=== PATIENT | male | born 1970 | race Caucasian/White ===

== ENCOUNTER 2022-04-30 12:24 | Emergency (ER) | payer SELFPAY ==
[~2022-04-30] VITALS: Ht 177.8 cm; Wt 91.0 kg
[2022-04-30 12:52] VITALS: BP 121/92
[2022-04-30] MEDS ORDERED: KETOROLAC 60MG/2ML VIAL IM ONE (14:15)
[2022-04-30] MEDS ORDERED: NAPR-681 MT (15:52)
== END 2022-04-30 16:05 | disposition home or self-care (01) ==
LOC: ER 12:24
DX: M25.511 Pain in right shoulder (principal); M79.641 Pain in right hand; Z87.828 Personal history of other (healed) physical injury and trauma
CPT/HCPCS: 73030; 73130; 96372; 99284; J1885

== ENCOUNTER 2025-02-10 16:33 | Emergency (ER) | payer SELFPAY ==
[~2025-02-10] VITALS: Ht 170.2 cm; Wt 80.0 kg
[~2025-02-10 16:33] MED LIST: NAPR-681 MT
[2025-02-10 16:37] VITALS: O2SAT 100
[2025-02-10] MEDS: SODIUM CHLORIDE 0.9% 500 ML IV ONE (17:23)
[2025-02-10] MEDS: ONDANSETRON HCL 4MG/2ML INJ IV ONE (17:23)
[2025-02-10] MEDS: MORPHINE SULFATE 4 MG/ML INJ (FOR IV/IM USE) IV ONE (17:25)
[2025-02-10] MEDS ORDERED: TOPUD MT (19:30)
[2025-02-10] MEDS ORDERED: IBUP-1525 MT (19:30)
[2025-02-10 19:49] VITALS: BP 148/95; PULSE 102; RESP 17; TEMP 36.7; O2SAT 100
== END 2025-02-10 20:00 | disposition home or self-care (01) ==
LOC: ER 16:33
DX: S43.101A Unspecified dislocation of right acromioclavicular joint, initial encounter (principal); Z79.1 Long term (current) use of non-steroidal anti-inflammatories (NSAID); Z79.899 Other long term (current) drug therapy; W19.XXXA Unspecified fall, initial encounter; Y93.89 Activity, other specified; Y92.89 Other specified places as the place of occurrence of the external cause; Y99.8 Other external cause status
CPT/HCPCS: 71045; 73030; 96361; 96374; 96375; 99284; J2405; J2270; J7040; Z7610 ×2; A4565